=== PATIENT | male | born 1960 | race African-American/Black ===

== ENCOUNTER → 2019-03-30 | Day surgery (SDC) | payer OTHER ==
--- NOTE | 2019-03-30 13:49 | RADIOLOGY REPORT (SQ) ---
EXAM DESCRIPTION: ARTHRO SHOULDER INJECTION; FLUORO/NEEDLE PLACEMENT COMPLETED DATE/TIME: 03/30/2019 10:34 am REASON FOR STUDY: M25.512 PAIN IN LEFT SHOULDER M25.512 PAIN IN LEFT SHOULDER COMPARISON: None. FLUOROSCOPY TIME: 15 seconds 3 images saved to PACS. LIMITATIONS: None. PROCEDURE: Procedure, risks, benefits and alternatives explained to patient who then gave written co nsent. The left shoulder was marked and a time out was called for correct procedure verification. Po sterior entry site marked using fluoroscopic guidance. Shoulder prepped and draped using sterile yulisa hnique. Local anesthesia achieved using 1% lidocaine injection. Hypodermic needle introduced into t he joint space under direct fluoroscopic visualization. Non-ionic contrast instilled to confirm intra -articular position. Dilute gadolinium solution then injected. Needle removed and entry site covered with sterile bandage. No immediate complications noted. TECHNIQUE: Digital images acquired during fluoroscopy and stored on PACS. Patient immediately take n to the MR suite for additional imaging. INJECTION LOCATION: Posterior left shoulder. CONTRAST TYPE AND AMOUNT: 0.5 cc Omnipaque 10 cc Dotarem/Saline mixture. IMPRESSION: SUCCESSFUL NEEDLE PLACEMENT AND INJECTION FOR LEFT SHOULDER MR ARTHROGRAM USING POSTERIO R APPROACH. COMMENT: Quality ID [id number]: Final reports for procedures using fluoroscopy that document radiation exp osure indices, or exposure time and number of fluorographic images (if radiation exposure indices are not available) TECHNICAL DOCUMENTATION: JOB ID: [id number] [employer]- All Rights Reserved Reading location - IP/workstation name: [email or web address]
--- NOTE | 2019-03-30 14:24 | RADIOLOGY REPORT (SQ) ---
EXAM DESCRIPTION: MRI LT UPPER JOINT WITH COMPLETED DATE/TIME: 03/30/2019 11:08 am REASON FOR STUDY: M25.512 PAIN IN LEFT SHOULDER M25.512 PAIN IN LEFT SHOULDER COMPARISON: None. TECHNIQUE: Left shoulder images acquired and stored on PACS. Oblique coronal, oblique sagittal, and axial imaging to include fat sensitive sequences as T1, water sensitive sequences as FST2/STIR, and c ontrast sensitive sequences as FST1. LIMITATIONS: None. FINDINGS: JOINT DISTENTION: Adequate distention. Contrast in the subacromial bursa. BONE MARROW AND CORTEX: Os acromiale. AC JOINT: Type 2 acromion.. No significant AC joint arthropathy. GLENOHUMERAL JOINT: Intact. ROTATOR CUFF: Tendinosis supraspinatus and infraspinatus. Full-thickness partial width tear of the a nterior supraspinatus. LABRUM AND BICEPS LABRAL COMPLEX: Normal signal in the rotator interval without tear of the superior glenohumeral ligament. Superior labrum, intra-articular long head biceps intact. Distal biceps in no rmal anatomic location in bicipital groove. No paralabral cysts. INFERIOR LABRAL COMPLEX: Bony glenoid and labrum intact. IGHL intact without thickening or tear. No p aralabral cysts. ADJACENT SOFT TISSUES: No masses or nodes. OTHER: No other significant finding. IMPRESSION: 1. Tendinosis supraspinatus and infraspinatus. Partial width full-thickness tear anterior supraspina tus. 2. 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 TECHNICAL DOCUMENTATION: JOB ID: [id number]- All Rights Reserved Reading location - IP/workstation name: [email or web address]
== END ==
LOC: RAD 09:26
PROVIDERS: ATTEND Physician Assistant
DX: M25.512 Pain in left shoulder (principal); M25.812 Other specified joint disorders, left shoulder; M75.122 Complete rotator cuff tear or rupture of left shoulder, not specified as traumatic
CPT/HCPCS: 73222; 77002; 23350; A9576